=== PATIENT | male | born 1995 | race Two or more races ===

== ENCOUNTER → 2022-05-25 09:54 | Outpatient (BNVA) | payer OTHER, SELFPAY | PROVIDERS: PCP Pediatrics; Visit Provider Nurse Practitioner Family | DX: F07.81 Postconcussional syndrome (principal) | CPT/HCPCS: 99202 ==

== ENCOUNTER 2022-09-06 07:24 | Outpatient (AMB) | payer OTHER, SELFPAY ==
[2022-09-06 07:29] VITALS: BP 122/90; PULSE 92; O2SAT 98; BMI 42.7
--- NOTE | 2022-09-06 07:29 | MHC.OFFVIS ---
Intake Vital Signs 09/06/22 07:29 Height 5 ft 8 in Weight 281 lb 2 oz BMI 42.7 BP 122/90 H Blood Pressure Location Rt brachial Position Sitting Pulse 92 Pulse Source Pulse Oximeter Pulse Oximetry (%) 98 Oxygen Delivery Method Room Air Intake Visit Reasons: 3m follow up POSTCONCUSSION - Confirmed Intake Note: Pt presents with his nurse case resource manager as a 3 month f/u for post concussion. Pt states Going pretty good. Pt states no concerns. Records Management Engineer Required: No Allergies No Known Allergies [No Known Allergies*] Allergy (Verified 09/06/22 07:37) Medication List - Last Reconciled 09/06/22 by SHARI Zazueta No Known Home Meds HPI HPI Comments History of Present Illness Details 27-yr-old male presents for f/u visit, accomapnied by his work comp case resource manager. Pt denies any significant interval medical changes. Pt deneis any recent headacge. The left side of his head is no longer sore- but he is prone to want to touch it. Denies any recent dizziness. Cognition is stable. He is still a bit photophobic- tends to keep the lights low and has tinted his car windshield which helps. PFSH Surgical History History of throat surgery Family History Father Asthma Mother Malignant tumor of neck Social History (Updated 09/06/22 @ 07:37 by Jacqueline Romero CMA) Alcohol intake: current Alcohol intake frequency: does not drink Patient Tobacco Use Status: Never used Tobacco Use of substances other than those prescribed or required for medical reasons: No Review of Systems Const All systems reviewed & are unremarkable except as noted in HPI and below Physical Exam Vital Signs: Last Vital Signs Pulse 92 09/06/22 07:29 BP 122/90 H 09/06/22 07:29 Pulse Ox 98 09/06/22 07:29 Oxygen Delivery Method Room Air 09/06/22 07:29 BMI result Body Mass Index 42.7 Const General: cooperative and no acute distress Orientation/consciousness: patient oriented x3 HEENT Head: Yes normocephalic Resp Effort & Inspection: normal respiratory effort and able to speak in complete sentences Neuro General: patient oriented x3, gait normal and CN's II-XI intact bilaterally Cognition (Neuro): normal cognition Motor exam (neuro): 5/5 motor strength present throughout Psych Appearance: grossly normal Mental Status: mental status grossly normal Speech and movement: Normal speech and movement present Affect: normal affect Attitude: cooperative Thought process: Normal thought process present Thought content: Normal thought content present Insight: Good insight present (Psych) Judgement: Good judgement present (Psych) Assessment & Plan Assessment & Plan (1) Postconcussive syndrome: Code(s): F07.81 - Postconcussional syndrome Plan Pt has overall improved w/ only residual photophobia at this point. Discussed that he ask the V for a tint waiver form for his vehicle d/t his ongoing photophobia. He may continue to work full-time w/o restrictions. He can f/u here prn. Coding Level of Care Code Est Pt Level 3 (14873) Diagnoses Postconcussive syndrome F07.81
== END 2022-09-06 07:59 | disposition home or self-care (01) ==
LOC: HO.HSMS 07:24
PROVIDERS: PCP Pediatrics; Visit Provider Nurse Practitioner Family
DX: F07.81 Postconcussional syndrome (principal)
CPT/HCPCS: 99213

== ENCOUNTER → 2022-09-06 07:24 | Outpatient (BNVA) | payer OTHER, SELFPAY | PROVIDERS: PCP Pediatrics; Visit Provider Nurse Practitioner Family | DX: F07.81 Postconcussional syndrome (principal) | CPT/HCPCS: 99212 ==